=== PATIENT | female | born 1940 | race Caucasian/White ===

== ENCOUNTER → 2016-07-04 | Outpatient (CLI) | payer MEDICARE ==
[2016-07-04 19:33] LABS: CALCIUM LEVEL 9.9 MG/DL (8.8-10.2); CREATININE FOR GFR 0.97 MG/DL (0.55-1.02); GLOMERULAR FILTRATION RATE 59.8 (>39); POTASSIUM SERUM 4.8 MEQ/L (3.5-5.1)
== END ==
LOC: M SMT 13:52
PROVIDERS: ATTEND Urology
DX: N28.89 Other specified disorders of kidney and ureter (principal)

== ENCOUNTER → 2016-07-11 | Outpatient (CLI) | payer MEDICARE ==
[~2016-07-11] MED LIST: ISOVUE-370 76% 100ML VIAL (Q9967) As Ordered ONE
--- NOTE | 2016-07-11 16:15 | REP ---
CT ABDOMEN WITHOUT AND WITH CONTRAST: 07/11/2016. Clinical history: Left renal mass. Comparison: CT 10/26/2015. Technique: Noncontrast images through the liver followed by a bolus of 100 ml with arterial, venous and delayed phase imaging at 5 minutes. Coronal and sagittal reconstructions for the venous phase images. Findings: The lung bases show minor dependent atelectatic changes and some curvilinear atelectasis medial basal segments of both lower lobes. No effusion or acute infiltrate, no nodule or mass. The heart is not enlarged. There is a small hiatal hernia, but no pericardial thickening or effusion. There are some coronary artery calcifications evident. The liver shows on the arterial and venous phase very subtle hypodense nodule posteriorly in the right hepatic lobe measuring 9.5 mm. This is barely visible on the previous study and is not visible on the precontrast or delayed images. It becomes isodense. There is no intrahepatic biliary dilatation or other masses. A single calcification in the right hepatic lobe is again noted. There is no splenomegaly, focal splenic mass lesion or adjacent ascites in the upper abdomen. Gallbladder shows no calcified stone or mass. Pancreas without mass, ductal dilatation or inflammatory changes adjacent. Stomach collapsed but unchanged. Colon shows no sign of colitis, diverticulitis, stricture or mass. Small bowel loops unremarkable. There is atherosclerotic calcification of the aorta and branches with maximum AP diameter 2.8 cm. Calcifications are seen in the aortic branches and at their origins. The adrenal glands show some thickening of limbs suggesting some adrenal hyperplasia, unchanged. There is the 2.5 by 2.4 x 1.8 cm anterior lower pole lesion with fatty change at the junction interpolar and lower pole region on the left with a 4 mm calcification within the inferior aspect of the lesion. This is unchanged in overall appearance. There is an exophytic 1.5 cm cyst off the posterior lower pole of the left kidney which has CT attenuation values of 29 HU on precontrast images. On the delayed images attenuation value is 31 HU. Venous phase imaging showed attenuation value of 30 HU. This is not significant enhancement. No findings in the right kidney. Degenerative disc changes at multiple lumbar and lower thoracic levels, unchanged. The lower lumbar facets show degenerative disc disease. No adenopathy or ascites. Impression: 1. There is a 2.5 x 2.4 x 1.8 cm fat containing lesion with one tiny calcification and other soft tissue components. This most likely represents a benign fatty lesion, usually an angiomyolipoma. This is entirely unchanged from the previous study. 2. 1.5-cm hyperdense cyst lower pole left kidney. I do not see enhancement from the precontrast through the venous and delayed phase imaging as described above. After careful review of today's three-phase component exam and absence of any significant enhancement, this study is a Bosniak II category hyperdense cyst, benign. 3. Calcified tortuous aorta. 4. 9 mm low attenuation lesion posterior right hepatic lobe seen on immediate arterial images and venous images, but isointense on the 5-minute delayed image set. This is nonaggressive benign-appearing lesion, which is acting like hemangioma. There is a similar subtle hypodensity on the previous CT following these same enhancement characteristics. Signed by Thiago Cadena MD 07/11/2016 05:25 P
== END ==
LOC: M RAD 13:49
PROVIDERS: ATTEND Urology
DX: N28.89 Other specified disorders of kidney and ureter (principal); N28.1 Cyst of kidney, acquired; I70.0 Atherosclerosis of aorta; Q25.46 Tortuous aortic arch
CPT/HCPCS: 74170; Q9967

== ENCOUNTER → 2016-12-26 | Outpatient (REF) | payer MEDICARE ==
[2016-12-29 00:09] LABS: Lyme Disease IgG/IgM Antibodie <0.91 ISR (0.00-0.90); Lyme Disease IgM Ab Quantitati <0.80 index (0.00-0.79)
== END ==
LOC: M LAB REF 18:52
PROVIDERS: ATTEND Nurse Practitioner Adult Health
DX: M54.5 Low back pain (principal); W57.XXXA Bitten or stung by nonvenomous insect and other nonvenomous arthropods, initial encounter; X58.XXXA Exposure to other specified factors, initial encounter; Y92.9 Unspecified place or not applicable; Y93.9 Activity, unspecified

== ENCOUNTER → 2016-12-26 | Outpatient (CLI) | payer MEDICARE ==
--- NOTE | 2016-12-26 17:29 | REP ---
SACRUM AND COCCYX: Three views of the sacrum and coccyx are performed. There is no definite fracture or dislocation. There is mild narrowing and subchondral sclerosis at the sacroiliac joints bilaterally. There are vascular calcifications and phleboliths in the pelvis. Signed by Mirza Mayfield MD 12/26/2016 07:56 P
== END ==
LOC: M RAD 15:39
PROVIDERS: ATTEND Nurse Practitioner Adult Health
DX: M54.5 Low back pain (principal); W57.XXXA Bitten or stung by nonvenomous insect and other nonvenomous arthropods, initial encounter; X58.XXXA Exposure to other specified factors, initial encounter; Y92.9 Unspecified place or not applicable; Y93.9 Activity, unspecified

== ENCOUNTER 2017-02-27 07:10 | Day surgery (SDC) | payer MEDICARE ==
[~2017-02-27] VITALS: Ht 165.1 cm; Wt 72.6 kg
[~2017-02-27 07:10] MED LIST changes: +ADV250INH INH; +ASPI325T24 PO; +ATOR1TAB19 PO; +AZEL0.055; +CILO100T PO; +COQ1150C PO; +FISH1000 PO; +FLUTISP; +GLUCPOW24 PO; -ISOVUE-370 76% 100ML VIAL (Q9967) As Ordered ONE; +LORA10CA PO; +METR0.753 EX; +PROAAER10 INH; +RALO1TAB PO; +VALS1TAB48 PO; +VITA-122 PO; +VITA100072 PO; +VITA500T3 PO
[2017-02-27] MEDS ORDERED: NS 1,000 ML IV ONE (07:45)
[2017-02-27] MEDS ORDERED: PROPOFOL 200 MG/20 ML VIAL As Ordered ONE (08:21)
[2017-02-27] MEDS ORDERED: LIDOCAINE 2% INJ 100 MG/5 ML SDV (FOR ANES.) As Ordered ONE (08:21)
--- NOTE | 2017-02-27 08:25 | ROOR ---
Patient Name: Kim Mart Procedure Date: 02/27/2017 8:11 AM Date of : 1940 Age: 76 Room: [facility] Gender: Female Note Status: Finalized Procedure: Upper GI endoscopy Indications: Dyspepsia, Heartburn Providers: Jonathan CAUSEY MD Referring MD: Francisca Polo NP Requesting Provider: Medicines: Monitored Anesthesia Care Complications: No immediate complications. Procedure: Pre-Anesthesia Assessment: - The heart rate, respiratory rate, oxygen saturations, blood pressure, adequacy of pulmonary ventilation, and response to care were monitored throughout the procedure. The Endoscope was introduced through the mouth, and advanced to the second part of duodenum. The upper GI endoscopy was accomplished without difficulty. The patient tolerated the procedure well. Findings: A small hiatal hernia was present. The esophagus was normal. The stomach was normal. The examined duodenum was normal. Impression: - Small hiatal hernia. - Normal esophagus. - Normal stomach. - Normal examined duodenum. - No specimens collected. Recommendation: - Observe patient's clinical course. - Follow an antireflux regimen. Jonathan Causey MD Jonathan CAUSEY MD 02/27/2017 8:24:17 AM This report has been signed electronically. Number of Addenda: 0 Note Initiated On: 02/27/2017 8:11 AM Estimated Blood Loss: Estimated blood loss: none.
--- NOTE | 2017-02-27 08:55 | ROOR ---
Patient Name: Kim Mart Procedure Date: 02/27/2017 8:12 AM Date of : 1940 Age: 76 Room: [facility] Gender: Female Note Status: Finalized Procedure: Colonoscopy Indications: Screening for colorectal malignant neoplasm Providers: Jonathan CAUSEY MD Referring MD: Francisca Polo NP Requesting Provider: Medicines: Monitored Anesthesia Care Complications: No immediate complications. Procedure: Pre-Anesthesia Assessment: - The heart rate, respiratory rate, oxygen saturations, blood pressure, adequacy of pulmonary ventilation, and response to care were monitored throughout the procedure. The Colonoscope was introduced through the anus and advanced to 3 cm into the ileum. The colonoscopy was performed without difficulty. The patient tolerated the procedure well. The quality of the bowel preparation was good. Findings: The perianal and digital rectal examinations were normal. Six semi-sessile polyps were found in the rectum (benign-appearing lesion). The polyps were 3 to 6 mm in size. These polyps were removed with a cold snare. Resection and retrieval were complete. Three sessile polyps were found in the distal transverse colon and hepatic flexure. The polyps were 3 to 5 mm in size. These polyps were removed with a cold snare. Resection and retrieval were complete. Multiple small-mouthed diverticula were found in the sigmoid colon. The exam was otherwise without abnormality. Impression: - Six benign appearing 3 to 6 mm polyps in the rectum, removed with a cold snare. Resected and retrieved. - Three 3 to 5 mm polyps in the distal transverse colon and at the hepatic flexure, removed with a cold snare. Resected and retrieved. - Mild diverticulosis in the sigmoid colon. - The colon examination was otherwise normal. Recommendation: - Telephone endoscopist for pathology results in 2 weeks. - If the pathology report reveals adenomatous tissue, then repeat the colonoscopy for surveillance in 3 years. - Resume Pletal (cilostazol) at prior dose tomorrow. Jonathan Causey MD Jonathan CAUSEY MD 02/27/2017 8:55:09 AM This report has been signed electronically. Number of Addenda: 0 Note Initiated On: 02/27/2017 8:12 AM Estimated Blood Loss: Estimated blood loss: none.
[2017-02-27 09:14] VITALS: BP 137/81
== END 2017-02-27 09:17 | disposition home or self-care (01) ==
LOC: M OPP 07:10
PROVIDERS: ATTEND Internal Medicine Gastroenterology
DX: K57.30 Diverticulosis of large intestine without perforation or abscess without bleeding (principal); K62.1 Rectal polyp; D12.3 Benign neoplasm of transverse colon; R19.5 Other fecal abnormalities; R10.13 Epigastric pain; K44.9 Diaphragmatic hernia without obstruction or gangrene; I10 Essential (primary) hypertension; E78.00 Pure hypercholesterolemia, unspecified; M19.90 Unspecified osteoarthritis, unspecified site; J44.9 Chronic obstructive pulmonary disease, unspecified; I73.9 Peripheral vascular disease, unspecified; Z79.82 Long term (current) use of aspirin; Z79.899 Other long term (current) drug therapy; Z91.018 Allergy to other foods; Z85.3 Personal history of malignant neoplasm of breast

== ENCOUNTER → 2017-07-01 | Outpatient (CLI) | payer MEDICARE ==
[2017-07-01 14:01] LABS: ANION GAP 4 MEQ/L (8-16); BLOOD UREA NITROGEN 20 MG/DL (7-18); CALCIUM LEVEL 9.3 MG/DL (8.8-10.2); CARBON DIOXIDE LEVEL 28 MEQ/L (21-32); CHLORIDE LEVEL 107 MEQ/L (98-107); CREATININE FOR GFR 0.83 MG/DL (0.55-1.30); GLOMERULAR FILTRATION RATE > 60.0 (>39); GLUCOSE, FASTING 79 MG/DL (70-100); POTASSIUM SERUM 4.8 MEQ/L (3.5-5.1); SODIUM LEVEL 139 MEQ/L (136-145)
== END ==
LOC: M SMT 10:41
DX: N28.89 Other specified disorders of kidney and ureter (principal)
CPT/HCPCS: 80048

== ENCOUNTER → 2017-12-30 | Outpatient (CLI) | payer MEDICARE | LOC: M WHC 15:20 | DX: M85.851 Other specified disorders of bone density and structure, right thigh (principal); M85.852 Other specified disorders of bone density and structure, left thigh | CPT/HCPCS: 77080 ==

== ENCOUNTER → 2018-09-23 | Outpatient (REF) | payer MEDICARE ==
[~2018-09-23] MED LIST changes: +ASPI-255 PO; -ASPI325T24 PO; -VALS1TAB48 PO; +VALS1TAB68 PO; +VITA100018 PO; -VITA100072 PO
== END ==
LOC: M LAB REF 12:39
PROVIDERS: ATTEND Nurse Practitioner Adult Health
DX: R51 Headache (principal)

== ENCOUNTER → 2019-01-01 | Outpatient (CLI) | payer MEDICARE ==
[~2019-01-01] MED LIST changes: +CYAN500T8 PO; -VITA500T3 PO
--- NOTE | 2019-01-01 19:57 | REP ---
HISTORY: Chest pain. Dyspnea. COMPARISON: 09/25/2015, the latest prior. Cardiomediastinal silhouette is unchanged. The heart is not enlarged. There is an incidental calcified granuloma in the left upper lobe, status quo. There is minimal basilar fibrotic change, status quo. No acute patchy parenchymal opacities or pleural effusions have developed. Incidental note is made of mediastinal and hilar calcifications, status quo. IMPRESSION: Stable appearing chronic changes without evidence of acute cardiopulmonary disease. Electronically Signed by Venkat Kathleen DO 01/04/2019 04:14 P
--- NOTE | 2019-01-01 20:35 | REP ---
CAROTID ULTRASOUND: Real-time sonographic evaluation and duplex Doppler interrogation of the extracranial carotid vasculature is performed. Moderate to large amount of partially calcified plaquing is seen in both carotid bulbs and internal carotid arteries, more so on the right than on the left. There is elevated peak systolic velocity of the right internal carotid artery 289 cm/s consistent with stenosis 60 to 79%. Luminal narrowing of the left ICA is compatible with less than 50% with no elevation in the peak systolic velocity. There is normal direction of flow in both vertebral arteries. 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 Luminal narrowing left ICA, less than 50%. Electronically Signed by Mirza aMyfield MD 01/04/2019 11:22 P
== END ==
LOC: M RAD 15:33
PROVIDERS: ATTEND Nurse Practitioner Adult Health
DX: R01.1 Cardiac murmur, unspecified (principal)

== ENCOUNTER → 2019-09-10 | Outpatient (REF) | payer MEDICARE | LOC: M LAB REF 16:28 | PROVIDERS: ATTEND Nurse Practitioner Adult Health | DX: N76.0 Acute vaginitis (principal) ==

== ENCOUNTER → 2020-04-06 | Outpatient (REF) | payer MEDICARE ==
[~2020-04-06] MED LIST changes: +CYAN500T14 PO; -CYAN500T8 PO
== END ==
LOC: M LAB REF 14:35
PROVIDERS: ATTEND Nurse Practitioner Adult Health
DX: R19.7 Diarrhea, unspecified (principal)

== ENCOUNTER → 2020-09-28 | Outpatient (REF) | payer MEDICARE ==
[2020-09-29 12:22] LABS: PHOSPHORUS LEVEL 4.3 MG/DL (2.5-4.9); URIC ACID 5.4 MG/DL (2.6-6.0)
[2020-09-29 12:35] LABS: PTH INTACT 31.5 PG/ML (18.5-88.0)
== END ==
LOC: M LAB REF 11:20
PROVIDERS: ATTEND Nurse Practitioner Adult Health
DX: N18.31 Chronic kidney disease, stage 3a (principal)

== ENCOUNTER → 2021-02-12 | Outpatient (CLI) | payer MEDICARE ==
[~2021-02-12] MED LIST changes: +ADV500INH INH; +AMLO2.5T3 PO; +CALC1TAB29 PO; +CARV6.25 PO; +FAMO20TA PO; +GENT1SOL17 OU; +IBAN150T6 PO; +LOSA50TA88 PO; +NITR4TASL SL; +PENT400T22 PO; +PRAS10TA2 PO; +XARE2.5T PO
== END ==
LOC: M LABSMTC 09:50
PROVIDERS: ATTEND Anesthesiology
DX: Z01.818 Encounter for other preprocedural examination (principal); Z11.52 Encounter for screening for COVID-19

== ENCOUNTER 2021-02-16 06:48 | Day surgery (SDC) | payer MEDICARE ==
[~2021-02-16] VITALS: Ht 160 cm; Wt 83.5 kg
[~2021-02-16 06:48] MED LIST changes: +LOSA50TA28 PO; -LOSA50TA88 PO; +NS 1,000 ML IV ONE
[2021-02-16] MEDS ORDERED: propofoL 200 MG/20 ML VIAL As Ordered ONE (07:48)
[2021-02-16] MEDS ORDERED: LIDOCAINE 2% 100MG/5ML SDV (FOR ANES.) As Ordered ONE (07:48)
[2021-02-16 08:20] VITALS: BP 138/60
== END 2021-02-16 08:36 | disposition home or self-care (01) ==
LOC: M OPP 06:48
PROVIDERS: ATTEND Internal Medicine Gastroenterology
DX: Z12.11 Encounter for screening for malignant neoplasm of colon (principal); Z86.010 Personal history of colon polyps; D12.3 Benign neoplasm of transverse colon; K57.30 Diverticulosis of large intestine without perforation or abscess without bleeding; K64.8 Other hemorrhoids; Z80.3 Family history of malignant neoplasm of breast; Z80.6 Family history of leukemia; I73.9 Peripheral vascular disease, unspecified; Z79.899 Other long term (current) drug therapy; Z85.3 Personal history of malignant neoplasm of breast; J44.9 Chronic obstructive pulmonary disease, unspecified; Z95.5 Presence of coronary angioplasty implant and graft; Z91.018 Allergy to other foods; Z88.8 Allergy status to other drugs, medicaments and biological substances; Z87.891 Personal history of nicotine dependence

== ENCOUNTER → 2022-01-18 | Outpatient (CLI) | payer MEDICARE ==
[~2022-01-18] MED LIST changes: -CILO100T PO; +CILO100T3 PO; -NS 1,000 ML IV ONE
== END ==
LOC: M WHC 11:05
PROVIDERS: ATTEND Nurse Practitioner Adult Health
DX: Z13.820 Encounter for screening for osteoporosis (principal); M85.851 Other specified disorders of bone density and structure, right thigh; M85.852 Other specified disorders of bone density and structure, left thigh

== ENCOUNTER → 2022-02-28 | Outpatient (CLI) | payer MEDICARE | LOC: M RAD 09:43 | PROVIDERS: ATTEND Physician Assistant | DX: I65.23 Occlusion and stenosis of bilateral carotid arteries (principal) ==

== ENCOUNTER → 2022-08-01 | Outpatient (REF) | payer MEDICARE ==
[~2022-08-01] MED LIST changes: +FLUT50SP17; -FLUTISP
== END ==
LOC: M LAB REF 16:13
PROVIDERS: ATTEND Nurse Practitioner Adult Health
DX: R07.9 Chest pain, unspecified (principal)

== ENCOUNTER 2022-08-02 08:35 | Emergency (ER) | payer MEDICARE ==
[~2022-08-02] VITALS: Ht 160 cm; Wt 79.3 kg
[2022-08-02 10:05] LABS: BASO % 0.6 % (0.0-1.0); EOS # 0.1 10^3/uL (0.0-0.5); EOS % 2.1 % (0.0-3.0); HEMATOCRIT 42.9 % (36.0-47.0); LYMPH # 2.4 10^3/uL (1.5-5.0); LYMPH % 35.4 % (24.0-44.0); MEAN CORPUSCULAR HEMOGLOBIN 31.6 pg (27.0-33.0); MEAN CORPUSCULAR HGB CONC 32.6 g/dl (32.0-36.5); MEAN CORPUSCULAR VOLUME 96.8 fl (80.0-96.0); MONO # 0.5 10^3/uL (0.0-0.8); MONO % 6.9 % (2.0-8.0); NEUTROPHILS # 3.7 10^3/uL (1.5-8.5); NEUTROPHILS % 54.7 % (36.0-66.0); PLATELET COUNT, AUTOMATED 193 10^3/uL (150-450); RED BLOOD COUNT 4.43 10^6/uL (4.00-5.40); WHITE BLOOD COUNT 6.8 10^3/uL (4.0-10.0)
[2022-08-02 10:12] LABS: INR 1.02; PROTHROMBIN TIME 13.6 SECONDS (12.5-14.5)
[2022-08-02 10:13] LABS: PARTIAL THROMBOPLASTIN TIME 28.7 SECONDS (24.8-34.2)
[2022-08-02 10:38] LABS: CK-MB VALUE MASS 1.6 NG/ML (<3.6)
[2022-08-02 10:40] LABS: LIPASE 68 U/L (12-53)
[2022-08-02 10:42] LABS: ALBUMIN 3.6 G/DL (3.2-5.2); ALKALINE PHOSPHATASE 55 U/L (46-116); ALT/SGPT 22 U/L (7.0-40); AST/SGOT 28 U/L (<34); BILIRUBIN,DIRECT 0.2 MG/DL (<0.4); BILIRUBIN,TOTAL 0.6 MG/DL (0.3-1.2); BLOOD UREA NITROGEN 24 MG/DL (9-23); CALCIUM LEVEL 9.3 MG/DL (8.3-10.6); CARBON DIOXIDE LEVEL 26 MMOL/L (20-31); CHLORIDE LEVEL 106 MMOL/L (98-107); CREATININE FOR GFR 0.92 MG/DL (0.55-1.30); GLOMERULAR FILTRATION RATE > 60.0 (>32); GLUCOSE, FASTING 85 MG/DL (74-106); POTASSIUM SERUM 4.6 MMOL/L (3.5-5.1); SODIUM LEVEL 140 MMOL/L (136-145); TOTAL PROTEIN 6.6 G/DL (5.7-8.2)
[2022-08-02 10:44] LABS: THYROID STIMULATING HORMONE 4.638 uIU/ML (0.55-4.78)
[2022-08-02 10:47] LABS: CPK CREATINE PHOSPHOKINASE 108 U/L (34-145); MB/CK RELATIVE INDEX 1.48 (< OR =4)
[2022-08-02 11:23] LABS: CK-MB VALUE MASS 1.3 NG/ML (<3.6)
[2022-08-02 11:26] LABS: MB/CK RELATIVE INDEX 1.47 (< OR =4)
[2022-08-02] MEDS ORDERED: ASPIRIN 81MG CHEW TABLET PO ONE (12:55)
[2022-08-02] MEDS ORDERED: HEPARIN DRIP 25,000 UNITS in IV 1 EA IV SCH (13:00)
[2022-08-02] MEDS ORDERED: HEPARIN SOD (PORCINE) 5000UNITS/ML 1ML VIAL/SYRINGE IV ONE (13:00)
[2022-08-02 14:08] VITALS: BP 182/94
== END 2022-08-02 14:20 | disposition short-term general hospital (02) ==
LOC: M ED 08:35
DX: I20.0 Unstable angina (principal); I49.3 Ventricular premature depolarization; I44.4 Left anterior fascicular block; I45.10 Unspecified right bundle-branch block; I25.2 Old myocardial infarction; I10 Essential (primary) hypertension; Z86.79 Personal history of other diseases of the circulatory system; Z87.891 Personal history of nicotine dependence; Z91.02 Food additives allergy status; Z88.8 Allergy status to other drugs, medicaments and biological substances; Z79.52 Long term (current) use of systemic steroids; Z79.02 Long term (current) use of antithrombotics/antiplatelets; Z79.811 Long term (current) use of aromatase inhibitors; Z79.899 Other long term (current) drug therapy

== ENCOUNTER 2022-10-01 13:56 | Emergency (ER) | payer MEDICARE ==
[~2022-10-01] VITALS: Ht 160 cm; Wt 80.0 kg
[2022-10-01 13:56] VITALS: TEMP 97.7
[2022-10-01] MEDS ORDERED: NITROGLYCERIN 0.4MG SUBL TABLET SL PRN (14:55)
[2022-10-01] MEDS ORDERED: ASPIRIN 81MG CHEW TABLET PO ONE (14:55)
[2022-10-01 14:57] LABS: BASO % 0.3 % (0.0-1.0); EOS # 0.1 10^3/uL (0.0-0.5); EOS % 1.6 % (0.0-3.0); HEMATOCRIT 44.1 % (36.0-47.0); HEMOGLOBIN 14.5 g/dl (12.0-15.5); LYMPH # 2.1 10^3/uL (1.5-5.0); LYMPH % 30.7 % (24.0-44.0); MEAN CORPUSCULAR HEMOGLOBIN 31.2 pg (27.0-33.0); MEAN CORPUSCULAR HGB CONC 32.9 g/dl (32.0-36.5); MEAN CORPUSCULAR VOLUME 94.8 fl (80.0-96.0); MONO # 0.4 10^3/uL (0.0-0.8); MONO % 6.4 % (2.0-8.0); NEUTROPHILS # 4.2 10^3/uL (1.5-8.5); NEUTROPHILS % 60.7 % (36.0-66.0); PLATELET COUNT, AUTOMATED 204 10^3/uL (150-450); RED BLOOD COUNT 4.65 10^6/uL (4.00-5.40); WHITE BLOOD COUNT 6.9 10^3/uL (4.0-10.0)
[2022-10-01 15:20] LABS: LIPASE 68 U/L (12-53)
[2022-10-01 15:21] LABS: CK-MB VALUE MASS 2.1 NG/ML (<3.6)
[2022-10-01 15:23] LABS: ALKALINE PHOSPHATASE 55 U/L (46-116); ALT/SGPT < 9 U/L (7.0-40); AST/SGOT 34 U/L (<34); BILIRUBIN,DIRECT 0.1 MG/DL (<0.4); BILIRUBIN,TOTAL 0.5 MG/DL (0.3-1.2); BLOOD UREA NITROGEN 18 MG/DL (9-23); CALCIUM LEVEL 9.2 MG/DL (8.3-10.6); CARBON DIOXIDE LEVEL 28 MMOL/L (20-31); CHLORIDE LEVEL 106 MMOL/L (98-107); GLOMERULAR FILTRATION RATE > 60.0 (>32); GLUCOSE, FASTING 98 MG/DL (74-106); POTASSIUM SERUM 4.6 MMOL/L (3.5-5.1); SODIUM LEVEL 140 MMOL/L (136-145); TOTAL PROTEIN 6.8 G/DL (5.7-8.2)
[2022-10-01 15:24] LABS: THYROID STIMULATING HORMONE 3.849 uIU/ML (0.55-4.78)
[2022-10-01 15:25] LABS: FREE T4 0.97 NG/DL (0.89-1.76)
[2022-10-01 15:26] LABS: CPK CREATINE PHOSPHOKINASE 79 U/L (34-145); MB/CK RELATIVE INDEX 2.65 (< OR =4)
[2022-10-01] MEDS ORDERED: ISOVUE-370 76% 100ML VIAL As Ordered ONE (16:15)
[2022-10-01 16:50] LABS: CK-MB VALUE MASS 1.5 NG/ML (<3.6); MB/CK RELATIVE INDEX 2.08 (< OR =4)
[2022-10-01 17:30] VITALS: BP 143/65; O2SAT 92
== END 2022-10-01 17:45 | disposition short-term general hospital (02) ==
LOC: M ED 13:56
DX: R07.9 Chest pain, unspecified (principal); I10 Essential (primary) hypertension; I44.4 Left anterior fascicular block; I45.10 Unspecified right bundle-branch block; I25.2 Old myocardial infarction; Z86.79 Personal history of other diseases of the circulatory system; Z91.02 Food additives allergy status; Z79.52 Long term (current) use of systemic steroids; Z79.02 Long term (current) use of antithrombotics/antiplatelets; Z79.899 Other long term (current) drug therapy
CPT/HCPCS: 36415; 71045; 71275; 80048; 80076; 82550; 82553; 83690; 83880; 84439; 84443; 84484; 85025; 93005; 93041; 94760; 99285; Q9967

== ENCOUNTER → 2023-03-11 | Outpatient (CLI) | payer MEDICARE ==
[~2023-03-11] MED LIST changes: -FLUT50SP17; +FLUTISP
== END ==
LOC: M RAD 11:39
PROVIDERS: ATTEND Internal Medicine
DX: I65.23 Occlusion and stenosis of bilateral carotid arteries (principal); I67.1 Cerebral aneurysm, nonruptured

== ENCOUNTER → 2023-04-24 | Outpatient (REF) | payer MEDICARE ==
[2023-04-24 17:27] LABS: PHOSPHORUS LEVEL 3.5 MG/DL (2.4-5.1)
== END ==
LOC: M LAB REF 16:24
PROVIDERS: ATTEND Internal Medicine
DX: N18.31 Chronic kidney disease, stage 3a (principal)

== ENCOUNTER → 2023-12-12 | Outpatient (CLI) | payer MEDICARE ==
[~2023-12-12] MED LIST changes: -AZEL0.055; +AZEL1SPR4
== END ==
LOC: M RAD 09:07
PROVIDERS: ATTEND Internal Medicine
DX: N18.31 Chronic kidney disease, stage 3a (principal); I70.1 Atherosclerosis of renal artery; N28.1 Cyst of kidney, acquired

== ENCOUNTER → 2024-05-27 | Outpatient (CLI) | payer MEDICARE ==
[~2024-05-27] MED LIST changes: -ADV250INH INH; -ADV500INH INH; +ADVA1AER10 INH; +ADVA1AER9 INH; +IBAN150T10 PO; -IBAN150T6 PO
== END ==
LOC: M RAD 12:44
PROVIDERS: ATTEND Internal Medicine
DX: I73.9 Peripheral vascular disease, unspecified (principal); I65.23 Occlusion and stenosis of bilateral carotid arteries

== ENCOUNTER → 2024-07-27 | Outpatient (CLI) | payer MEDICARE | LOC: M WUC 11:17 | PROVIDERS: ATTEND Nurse Practitioner Family | DX: J44.0 Chronic obstructive pulmonary disease with (acute) lower respiratory infection (principal); R05.9 Cough, unspecified; R30.0 Dysuria ==